=== PATIENT | male | born 1945 | race Caucasian/White ===

== ENCOUNTER 2018-04-11 07:52 | Emergency (ER) | payer MEDICARE, BC | END 2018-04-11 09:30 | disposition home or self-care (01) | LOC: FTE 07:52 | DX: S52.601A Unspecified fracture of lower end of right ulna, initial encounter for closed fracture (principal); S42.301A Unspecified fracture of shaft of humerus, right arm, initial encounter for closed fracture; W19.XXXA Unspecified fall, initial encounter; Y92.9 Unspecified place or not applicable; Z79.82 Long term (current) use of aspirin | CPT/HCPCS: 29125; 73110-RT; 99283-25 ==